=== PATIENT | female | born 1975 | race Caucasian/White ===

== ENCOUNTER 2016-11-16 05:31 | Emergency (ER) | payer OTHER, SELFPAY ==
[2016-11-16] MEDS ORDERED: Ketorolac Tromethamine 60 MG/2 ML VIAL ONE (06:48)
--- NOTE | 2016-11-16 08:12 | RAD ---
FRONTAL CHEST RADIOGRAPH WITH LEFT RIB SERIES 3 VIEWS: DATE: 11/16/16. PROVIDED CLINICAL HISTORY: Chest pain. FINDINGS: Cardiac and mediastinal silhouette is within normal limits. No focal consolidation, pleural fluid, or pneumothorax apparent. No evidence for a displaced left-sided rib fracture. IMPRESSION: No evidence for an acute process. POS: [facility]
== END 2016-11-16 07:16 | disposition home or self-care (01) ==
LOC: NAV ERS 05:31
DX: R07.9 Chest pain, unspecified (principal); F41.9 Anxiety disorder, unspecified; F31.9 Bipolar disorder, unspecified; F17.210 Nicotine dependence, cigarettes, uncomplicated; Z79.899 Other long term (current) drug therapy
CPT/HCPCS: J1885